=== PATIENT | female | born 1975 | race Hispanic/Latino ===

== ENCOUNTER 2018-03-01 10:31 | Emergency (ER) | payer BC ==
[2018-03-01] MEDS ORDERED: LORAZEPAM 2 MG/ML 1 ML VIAL ONE (10:51)
[2018-03-01 10:54] LABS: BASOPHILS % (AUTO) 3.3 % (0.0-5.0); EOSINOPHILS % (AUTO) 3.5 % (0.0-8.0); HEMATOCRIT 39.3 % (36-48); LYMPHOCYTES % (AUTO) 32.9 % (21.0-51.0); MEAN CORPUSCULAR HEMOGLOBIN 31.8 pg (27.0-33.0); MEAN CORPUSCULAR HGB CONC 34.1 g/dL (32.0-36.0); MONOCYTES % (AUTO) 15.3 % (3.0-13.0); NUCLEATED RED BLOOD CELLS 0.1 % (0.0-0.19); PLATELET COUNT (AUTO) 184 K/uL (130-400); RED BLOOD CELL COUNT(AUTO) 4.22 MIL/uL (4.00-5.50); RED CELL DISTRIBUTION WIDTH 16.6 % (11.0-15.5); WHITE BLOOD COUNT (AUTO) 3.6 K/uL (4.8-10.8)
[2018-03-01 11:04] LABS: CREATININE 0.9 mg/dL (0.5-1.5); POTASSIUM 3.1 mmol/L (3.5-5.1)
[2018-03-01] MEDS ORDERED: POTASSIUM BICARB/CIT AC 25 MEQ TABLET.EFF ONE (11:13)
[2018-03-01 11:18] LABS: BILIRUBIN,TOTAL 0.8 mg/dL (0.2-1.0); CREATINE KINASE MB 0.7 ng/mL (0.5-3.6); TOTAL PROTEIN, SERUM 8.3 g/dL (6.0-8.3)
[2018-03-01 11:32] LABS: INR 0.9 (0.85-1.15); PARTIAL THROMBOPLASTIN TIME 24.3 SEC (26.3-35.5); PROTHROMBIN TIME 9.5 SEC (9.6-11.6)
[2018-03-01] MEDS ORDERED: THIAMINE HCL 100 MG TABLET ONE (12:40)
== END 2018-03-01 12:53 | disposition home or self-care (01) ==
LOC: EDH 10:31
DX: F41.9 Anxiety disorder, unspecified (principal); F10.20 Alcohol dependence, uncomplicated; R79.1 Abnormal coagulation profile; Z72.0 Tobacco use
CPT/HCPCS: 36415; 71045; 80053; 82550; 82553; 83874; 84484; 84703; 85025; 85610; 85730; 93005; 94761; 96374; 99285; J2060

== ENCOUNTER 2021-08-23 12:41 | Emergency (ER) | payer BC, OTHER ==
[~2021-08-23] VITALS: Ht 160 cm; Wt 72.6 kg
[2021-08-23 12:49] VITALS: BP 121/75
== END 2021-08-23 14:59 | disposition left against medical advice (07) ==
LOC: EDH 12:41
DX: R11.2 Nausea with vomiting, unspecified (principal); Z53.21 Procedure and treatment not carried out due to patient leaving prior to being seen by health care provider